=== PATIENT | male | born 1995 | race Caucasian/White ===

== ENCOUNTER 2018-06-09 16:13 | Emergency (ER) | payer OTHER ==
[2018-06-09] MEDS: LIDOCAINE 1% (MDV) 20 ML INJ INJ (17:50)
[2018-06-09] MEDS: KETOROLAC 30 MG INJ IM (17:50)
[2018-06-09] MEDS: LIDOCAINE 1% (MDV) 10 ML INJ INJ (17:50)
== END 2018-06-09 20:23 | disposition home or self-care (01) ==
LOC: FTE 20:23
DX: S01.511A Laceration without foreign body of lip, initial encounter (principal); F90.9 Attention-deficit hyperactivity disorder, unspecified type; S02.2XXA Fracture of nasal bones, initial encounter for closed fracture; S80.02XA Contusion of left knee, initial encounter; S80.01XA Contusion of right knee, initial encounter; Y04.8XXA Assault by other bodily force, initial encounter
CPT/HCPCS: 70450; 70486; 96372; 99285-25